=== PATIENT | female | born 1945 | race Caucasian/White ===

== ENCOUNTER 2017-08-05 10:33 | Inpatient (IN) | payer MEDICARE ==
[2017-08-05] VITALS (8 sets, daily range): BP systolic 136–165; BP diastolic 64–105
[~2017-08-05] VITALS: Ht 158.8 cm; Wt 136.6 kg
[2017-08-05] MEDS ORDERED: SODIUM CHLORIDE 0.9% 1,000 ML IV ONE (10:44)
[2017-08-05] MEDS ORDERED: LORazepam 2MG/ML-1ML VIAL IV ONE (10:45)
[2017-08-05] MEDS ORDERED: AZITHROMYCIN 500MG/ 250ML 250 ML IV ONE (11:15)
[2017-08-05] MEDS ORDERED: cefTRIAXone 1GM/10ml IVPUSH 10 ML IV ONE (11:15)
[2017-08-05 11:18] LABS: Basophils # (auto) 0.1 uL; Basophils % (auto) 0.7 % (0.0-2.0); Eosinophils # (auto) 0.1 uL; Eosinophils % (auto) 0.5 % (0.0-7.0); Hematocrit 38.4 % (36.0-46.0); Hemoglobin 12.1 g/dL (12.2-16.2); Lymphocytes # (auto) 1.1 uL; Lymphocytes % (auto) 9.4 % (10.0-50.0); Mean Corpuscular Hemoglobin 27.7 pg (28.0-32.0); Mean Corpuscular Hgb Conc. 31.4 g/dL (32.0-36.0); Mean Corpuscular Volume 88.2 fL (80.0-100.0); Monocytes # (auto) 0.8 uL; Monocytes % (auto) 6.8 % (0.0-12.0); Neutrophils # (auto) 9.8 uL; Neutrophils % (auto) 82.6 % (37.0-80.0); Nucleated Red Blood Cells % 0.1 %; Platelet Count (auto) 293 10^3/uL (140-450); Red Blood Cells 4.35 10^6/uL (4.0-5.20); Red Cell Distribution Width 17.3 % (11.8-14.3); White Blood Cell 11.8 10^3/uL (4.4-10.8)
[2017-08-05 11:37] LABS: INR 3.2 (0.9-1.15); Partial Thromboplastin Time 36.8 sec (23.78-33.04); Prothrombin Time 32.1 sec (9.27-12.13)
[2017-08-05 11:56] LABS: Alanine Aminotransferase 17 U/L (13-56); Albumin 2.2 g/dL (3.4-5.0); Alkaline Phosphatase 113 U/L (45-117); Anion Gap 6 (5-15); Aspartate Aminotransferase 21 U/L (15-37); BUN/Creatinine Ratio 13.7; Bilirubin, Total 0.9 mg/dL (0.2-1.0); Blood Urea Nitrogen 17 mg/dL (7-18); Calcium 9.1 mg/dL (8.5-10.1); Carbon Dioxide 31 mmol/L (21-32); Chloride 102 mmol/L (98-107); GFR African American 55 mL/min; GFR Non-African American 45 mL/min; Glucose 166 mg/dL (74-106); Potassium 3.9 mmol/L (3.5-5.1); Sodium 139 mmol/L (136-145); Total Protein 7.2 g/dL (6.4-8.2)
[2017-08-05] MEDS ORDERED: ACETAMINOPHEN 500 MG TAB PO PRN (13:30)
[2017-08-05] MEDS ORDERED: HYDROcodone-ACET 5/325MG TAB PO PRN (13:30)
[2017-08-05] MEDS ORDERED: NITROGLYCERIN 0.4 MG SL TAB SL PRN (13:30)
[2017-08-05] MEDS ORDERED: LACTULOSE 20Gm/30ML SOLN PO PRN (13:30)
[2017-08-05] MEDS ORDERED: LORazepam 0.5 MG TAB PO PRN (13:30)
[2017-08-05] MEDS ORDERED: MORPHINE SULFATE 8mg/ml INJ SDV IV PRN ×2 (13:30)
[2017-08-05] MEDS ORDERED: TEMAZEPAM 15 MG CAP PO PRN (13:30)
[2017-08-05] MEDS ORDERED: PROMETHAZINE HCL 25 MG/ML 1ML IV PRN (13:30)
[2017-08-05] MEDS ORDERED: methylPREDNISolone SOD SUCC 40 MG/ML VL IV ONE (15:00)
[2017-08-05] MEDS ORDERED: ALBUTEROL SULF 2.5 MG/0.5ML(0.5%) NEB SOLN NEB PRN (15:00)
[2017-08-05] MEDS ORDERED: LABETALOL HCL 5 MG/ML ML 20ML VIAL IV PRN ×3 (15:15)
[2017-08-05] MEDS ORDERED: CARVEDILOL 3.125 MG TAB PO ONE (15:15)
[2017-08-05] MEDS: cloNIDine HCL 0.1 MG TAB PO SCH ×2 (16:38→22:00)
[2017-08-05] MEDS: LEVOFLOXACIN 500MG 100 ML IV SCH (16:40)
[2017-08-05] MEDS: LISINOPRIL 20 MG TAB PO SCH (16:40)
[2017-08-05] MEDS: CLINDAMYCIN 600MG IV 50 ML IV SCH (17:07)
[2017-08-05] MEDS: FUROSEMIDE 40 MG/4 ML VIAL IV SCH (18:12)
[2017-08-05] MEDS: ALBUTEROL SULF 2.5 MG/0.5ML(0.5%) NEB SOLN NEB SCH (18:40)
[2017-08-05] MEDS: IPRATROPIUM BROM 0.5 MG/2.5ML INH SOL NEB SCH (18:40)
[2017-08-05] MEDS: ATORVASTATIN 20 MG TAB PO SCH (22:00)
[2017-08-05] MEDS: CARVEDILOL 3.125 MG TAB PO SCH (22:00)
[2017-08-05] MEDS: methylPREDNISolone SOD SUCC 40 MG/ML VL IV SCH (22:00)
[2017-08-06 00:30] VITALS: BP 135/70
[2017-08-06] MEDS: IPRATROPIUM BROM 0.5 MG/2.5ML INH SOL NEB SCH ×4 (00:57→19:38)
[2017-08-06] MEDS: ALBUTEROL SULF 2.5 MG/0.5ML(0.5%) NEB SOLN NEB SCH ×4 (00:57→19:38)
[2017-08-06] MEDS: CLINDAMYCIN 600MG IV 50 ML IV SCH ×3 (01:00→17:00)
[2017-08-06 02:40] VITALS: BP 144/70
[2017-08-06 04:13] VITALS: BP 104/82
[2017-08-06 05:13] LABS: Urine Bacteria NONE SEEN /hpf (None Seen); Urine Blood TRACE /uL (Negative); Urine Hyaline Cast FEW /lpf (0 - 2); Urine Specific Gravity 1.011 (1.001-1.035); Urine WBC <1 /hpf (0 - 5)
[2017-08-06 05:35] LABS: Basophils # (auto) 0 uL; Basophils % (auto) 0.2 % (0.0-2.0); Eosinophils # (auto) 0 uL; Hematocrit 34.7 % (36.0-46.0); Hemoglobin 11.1 g/dL (12.2-16.2); Lymphocytes # (auto) 0.4 uL; Lymphocytes % (auto) 5.4 % (10.0-50.0); Mean Corpuscular Hemoglobin 28.4 pg (28.0-32.0); Mean Corpuscular Volume 88.7 fL (80.0-100.0); Monocytes # (auto) 0.1 uL; Monocytes % (auto) 1.3 % (0.0-12.0); Neutrophils # (auto) 6.4 uL; Neutrophils % (auto) 93.1 % (37.0-80.0); Platelet Count (auto) 204 10^3/uL (140-450); Red Blood Cells 3.91 10^6/uL (4.0-5.20); Red Cell Distribution Width 17.4 % (11.8-14.3); White Blood Cell 6.9 10^3/uL (4.4-10.8)
[2017-08-06 05:51] LABS: INR 2.24 (0.9-1.15); Partial Thromboplastin Time 35.2 sec (23.78-33.04); Prothrombin Time 22.9 sec (9.27-12.13)
[2017-08-06 06:05] LABS: Albumin 1.8 g/dL (3.4-5.0); BUN/Creatinine Ratio 17.4; Bilirubin, Total 0.8 mg/dL (0.2-1.0); Calcium 9.1 mg/dL (8.5-10.1); Potassium 4.3 mmol/L (3.5-5.1); Total Protein 6.1 g/dL (6.4-8.2)
[2017-08-06] MEDS: FUROSEMIDE 40 MG/4 ML VIAL IV SCH ×2 (06:22→18:06)
[2017-08-06] MEDS: cloNIDine HCL 0.1 MG TAB PO SCH ×3 (06:22→22:10)
[2017-08-06] MEDS ORDERED: NITROGLYCERIN 0.2MG/HR TOPICAL PATCH TD SCH (10:00)
[2017-08-06] MEDS ORDERED: ENALAPRIL MALEATE 2.5 MG TAB PO SCH (10:00)
[2017-08-06] MEDS ORDERED: ASPirin 81 mg TAB PO SCH (10:00)
[2017-08-06] MEDS: LEVOFLOXACIN 500MG 100 ML IV SCH (10:14)
[2017-08-06] MEDS: CARVEDILOL 3.125 MG TAB PO SCH ×2 (10:23→22:10)
[2017-08-06] MEDS: methylPREDNISolone SOD SUCC 40 MG/ML VL IV SCH ×2 (10:23→22:09)
[2017-08-06] MEDS: POTASSIUM CHL 20 Meq TABLET PO SCH (10:23)
[2017-08-06] MEDS: LISINOPRIL 20 MG TAB PO SCH (10:24)
[2017-08-06] MEDS: PANTOPRAZOLE 40 MG TAB PO SCH (10:24)
[2017-08-06] MEDS ORDERED: DEXTROSE (50%) 50ML SYRG IV PRN (11:45)
[2017-08-06] MEDS: BOOST 8 ounces PO SCH ×2 (12:04→18:05)
[2017-08-06] MEDS ORDERED: WARFARIN SODIUM 1 MG TAB PO ONE (17:00)
[2017-08-06] MEDS: InsuLIN REG 1unit/0.01ml Soln (100units/ml) SC SCH ×2 (17:00→22:20)
[2017-08-06] MEDS: ACCU-CHEK COMFORT CURVE STRIP VI SCH ×2 (17:00→22:10)
[2017-08-06] MEDS ORDERED: INSDRIP SC (19:39)
[2017-08-06] MEDS ORDERED: GLIP-115 PO (19:39)
[2017-08-06 22:00] VITALS: BP 157/77
[2017-08-06] MEDS: ATORVASTATIN 20 MG TAB PO SCH (22:09)
[2017-08-07] MEDS: CLINDAMYCIN 600MG IV 50 ML IV SCH ×3 (01:00→18:37)
[2017-08-07] MEDS: IPRATROPIUM BROM 0.5 MG/2.5ML INH SOL NEB SCH ×4 (01:34→18:40)
[2017-08-07] MEDS: ALBUTEROL SULF 2.5 MG/0.5ML(0.5%) NEB SOLN NEB SCH ×4 (01:34→18:40)
[2017-08-07 05:00] VITALS: BP 149/92
[2017-08-07 06:05] LABS: Basophils # (auto) 0 uL; Basophils % (auto) 0.1 % (0.0-2.0); Eosinophils # (auto) 0 uL; Hematocrit 35.2 % (36.0-46.0); Hemoglobin 11.4 g/dL (12.2-16.2); Lymphocytes # (auto) 0.4 uL; Lymphocytes % (auto) 4.3 % (10.0-50.0); Mean Corpuscular Hemoglobin 28.3 pg (28.0-32.0); Mean Corpuscular Hgb Conc. 32.3 g/dL (32.0-36.0); Mean Corpuscular Volume 87.7 fL (80.0-100.0); Monocytes # (auto) 0.3 uL; Monocytes % (auto) 3.2 % (0.0-12.0); Neutrophils # (auto) 8.3 uL; Neutrophils % (auto) 92.4 % (37.0-80.0); Platelet Count (auto) 220 10^3/uL (140-450); Red Blood Cells 4.01 10^6/uL (4.0-5.20); Red Cell Distribution Width 17.1 % (11.8-14.3)
[2017-08-07 06:21] LABS: INR 1.64 (0.9-1.15); Prothrombin Time 17.1 sec (9.27-12.13)
[2017-08-07] MEDS: FUROSEMIDE 40 MG/4 ML VIAL IV SCH ×2 (06:23→18:40)
[2017-08-07] MEDS: cloNIDine HCL 0.1 MG TAB PO SCH ×3 (06:24→21:30)
[2017-08-07] MEDS: ACCU-CHEK COMFORT CURVE STRIP VI SCH ×4 (06:29→21:31)
[2017-08-07 06:32] LABS: BUN/Creatinine Ratio 25.8; Calcium 9.1 mg/dL (8.5-10.1); Magnesium 2.2 mg/dL (1.6-2.6); Potassium 4.1 mmol/L (3.5-5.1)
[2017-08-07] MEDS: InsuLIN REG 1unit/0.01ml Soln (100units/ml) SC SCH ×4 (06:33→21:36)
[2017-08-07 09:36] VITALS: BP 148/71
[2017-08-07] MEDS: LEVOFLOXACIN 500MG 100 ML IV SCH (11:16)
[2017-08-07] MEDS: BOOST 8 ounces PO SCH ×3 (11:16→18:39)
[2017-08-07] MEDS: methylPREDNISolone SOD SUCC 40 MG/ML VL IV SCH (11:16)
[2017-08-07] MEDS: PANTOPRAZOLE 40 MG TAB PO SCH (11:17)
[2017-08-07] MEDS: LISINOPRIL 20 MG TAB PO SCH (11:17)
[2017-08-07] MEDS: POTASSIUM CHL 20 Meq TABLET PO SCH (11:17)
[2017-08-07] MEDS: CARVEDILOL 3.125 MG TAB PO SCH ×2 (11:18→21:30)
[2017-08-07 13:14] VITALS: BP 143/83
[2017-08-07] MEDS ORDERED: DRONEDARONE HCL 400 MG TAB PO ONE (13:30)
[2017-08-07 16:42] VITALS: BP 149/88
[2017-08-07] MEDS ORDERED: WARFARIN SODIUM 2.5 MG TAB PO ONE (17:00)
[2017-08-07] MEDS: ATORVASTATIN 20 MG TAB PO SCH (21:30)
[2017-08-07] MEDS: DRONEDARONE HCL 400 MG TAB PO SCH (21:31)
[2017-08-07 22:00] VITALS: BP 133/59
[2017-08-08] MEDS: ALBUTEROL SULF 2.5 MG/0.5ML(0.5%) NEB SOLN NEB SCH ×3 (00:27→12:56)
[2017-08-08] MEDS: IPRATROPIUM BROM 0.5 MG/2.5ML INH SOL NEB SCH ×3 (00:27→12:57)
[2017-08-08] MEDS: CLINDAMYCIN 600MG IV 50 ML IV SCH ×2 (01:06→09:14)
[2017-08-08 05:06] VITALS: BP 138/81
[2017-08-08 05:21] LABS: INR 1.44 (0.9-1.15); Prothrombin Time 15.1 sec (9.27-12.13)
[2017-08-08 05:26] LABS: BUN/Creatinine Ratio 29.9; Potassium 3.6 mmol/L (3.5-5.1)
[2017-08-08] MEDS: cloNIDine HCL 0.1 MG TAB PO SCH ×2 (06:16→14:49)
[2017-08-08] MEDS: FUROSEMIDE 40 MG/4 ML VIAL IV SCH ×2 (06:16→17:20)
[2017-08-08] MEDS: InsuLIN REG 1unit/0.01ml Soln (100units/ml) SC SCH ×3 (06:32→18:04)
[2017-08-08] MEDS: ACCU-CHEK COMFORT CURVE STRIP VI SCH ×3 (06:33→17:21)
[2017-08-08 08:56] VITALS: BP 135/76
[2017-08-08] MEDS: PANTOPRAZOLE 40 MG TAB PO SCH (09:14)
[2017-08-08] MEDS: LISINOPRIL 20 MG TAB PO SCH (09:14)
[2017-08-08] MEDS: POTASSIUM CHL 20 Meq TABLET PO SCH (09:14)
[2017-08-08] MEDS: DRONEDARONE HCL 400 MG TAB PO SCH (09:15)
[2017-08-08] MEDS: CARVEDILOL 3.125 MG TAB PO SCH (09:15)
[2017-08-08] MEDS: BOOST 8 ounces PO SCH ×3 (09:22→18:05)
[2017-08-08] MEDS ORDERED: methylPREDNISolone SOD SUCC 40 MG/ML VL IV SCH (10:00)
[2017-08-08] MEDS ORDERED: SACC250C PO (11:42)
[2017-08-08] MEDS ORDERED: CLIN1CAP4 PO (11:42)
[2017-08-08] MEDS ORDERED: LEVO500T21 PO (11:42)
[2017-08-08] MEDS ORDERED: POTASSIUM CHL 10 Meq TABLET PO ONE (12:00)
[2017-08-08] MEDS ORDERED: LEVOFLOXACIN 500 MG TAB PO SCH (12:00)
[2017-08-08 13:06] VITALS: BP 141/87
[2017-08-08] MEDS ORDERED: CLINDAMYCIN HCL 150 MG CAP PO SCH (14:00)
[2017-08-08 14:18] VITALS: BP 141/87
[2017-08-08] MEDS ORDERED: WARFARIN SODIUM 10 MG TAB PO ONE (17:00)
[2017-08-08 17:18] VITALS: BP 155/89
[2017-08-09] MEDS ORDERED: predniSONE 20 MG TAB PO SCH (10:00)
== END 2017-08-08 18:20 | disposition home health service (06) | DRG 871 ==
LOC: EDBD 10:33 → ER 10:33 → TELE 10:34 → TELE-WESTW 08-06 17:40
PROVIDERS: ADMIT Internal Medicine; ATTEND Internal Medicine
PROC: 5A09357 Assistance with Respiratory Ventilation, Less than 24 Consecutive Hours, Continuous Positive Airway Pressure (ICD-10-PCS; principal; 2017-08-05)
PROC: 5A09357 Assistance with Respiratory Ventilation, Less than 24 Consecutive Hours, Continuous Positive Airway Pressure (ICD-10-PCS; 2017-08-06)
PROC: 5A09357 Assistance with Respiratory Ventilation, Less than 24 Consecutive Hours, Continuous Positive Airway Pressure (ICD-10-PCS; 2017-08-07)
PROC: 5A09357 Assistance with Respiratory Ventilation, Less than 24 Consecutive Hours, Continuous Positive Airway Pressure (ICD-10-PCS; 2017-08-08)
DX: A41.9 Sepsis, unspecified organism (principal); I50.43 Acute on chronic combined systolic (congestive) and diastolic (congestive) heart failure; J96.21 Acute and chronic respiratory failure with hypoxia; E44.0 Moderate protein-calorie malnutrition; J18.9 Pneumonia, unspecified organism; E11.21 Type 2 diabetes mellitus with diabetic nephropathy; I48.2 Chronic atrial fibrillation; E11.65 Type 2 diabetes mellitus with hyperglycemia; I48.92 Unspecified atrial flutter; I13.0 Hypertensive heart and chronic kidney disease with heart failure and stage 1 through stage 4 chronic kidney disease, or unspecified chronic kidney disease; J96.22 Acute and chronic respiratory failure with hypercapnia; J44.1 Chronic obstructive pulmonary disease with (acute) exacerbation; L03.115 Cellulitis of right lower limb; L03.116 Cellulitis of left lower limb; J44.0 Chronic obstructive pulmonary disease with (acute) lower respiratory infection; Z68.43 Body mass index [BMI] 50.0-59.9, adult; E66.01 Morbid (severe) obesity due to excess calories; N18.9 Chronic kidney disease, unspecified; G47.33 Obstructive sleep apnea (adult) (pediatric); Z79.01 Long term (current) use of anticoagulants; Z90.710 Acquired absence of both cervix and uterus; Z95.0 Presence of cardiac pacemaker; I87.2 Venous insufficiency (chronic) (peripheral); Z79.899 Other long term (current) drug therapy; I89.0 Lymphedema, not elsewhere classified
CPT/HCPCS: 36415; 36600; 71045; 80048; 80053; 80061; 81001; 82550; 82805; 82962; 83036; 83605; 83735; 83880; 84443; 84484; 85025; 85610; 85652; 85730; 86141; 87040; 93005; 93306; 93970; 94640; 94660; 96365; 96375; 97163; 99291; J1815; J1956; J3490